=== PATIENT | male | born 1965 | race Caucasian/White ===

== ENCOUNTER → 2017-05-19 | Outpatient (CLI) | payer BC ==
--- NOTE | 2017-05-23 09:19 | SS ---
ADMIT: 05/19/2017 RM/LOC: [facility] MR#: [id number] [address] [id number] TERESA DAVID Min [address] [id number] Sleep Study SEX: M AGE: 51 : 1965 STUDY DATE: 05/19/2017 CLINICAL HISTORY: A 51-year-old male, body mass index of 33, 71 inches tall, 236 pounds, in the sleep lab for evaluation of obstructive sleep apnea. TECHNICAL DESCRIPTION: Diagnostic polysomnogram performed on night of 05/19/2017, attended by a trained electroencephalographic technologist. DIAGNOSTIC POLYSOMNOGRAM FINDINGS: SLEEP: Total time in bed is 466.5 minutes, total sleep time 281.5 minutes, sleep efficiency 60.3%. 40.6% of time was spent in stage II sleep, 5.1% time was spent in stage REM. BREATHING: No significant obstructive sleep apnea. Apnea-hypopnea of 3.4. Few hypopneas were seen in REM sleep in supine position. Other criteria for CPAP titration not met. OXYGEN SATURATION: Mean sleeping oxygen saturation 93%. CARDIAC: Average heart rate is 64 beats per minute. MOVEMENTS/POSITION: During the study, the patient slept in supine lateral position with no significant leg movements. IMPRESSION AND PLAN: No significant obstructive sleep apnea, apnea-hypopnea index of 3.4. Few hypopneas were seen in REM sleep in supine position, however, not significant to meet criteria for CPAP titration. Again, at this point, I would recommend weight loss and avoiding sleeping in supine position. Clinical correlation needed. No clear indication for CPAP therapy based on this sleep study. Atif Glaser MD/ clyde JOB #: [id number] CC: Viraj Jain MD, Attending Physician Bolivar Bolton MD, Family Physician Viraj Jain MD
== END | disposition home or self-care (01) ==
LOC: RESC 20:10
DX: G47.33 Obstructive sleep apnea (adult) (pediatric) (principal)